=== PATIENT | male | born 1960 | race Caucasian/White ===

== ENCOUNTER 2021-10-11 12:47 | Outpatient (CLI) | payer SELFPAY ==
--- NOTE | 2021-10-11 13:05 | XR_ITS ---
WS: [id number] Cervical spine, 4 views, 10/11/2021 Clinical Data: NECK PAIN Comparison: None. Findings: No compression fractures are seen. There is disc space narrowing at C5-C6 and C6-C7 with ac companying anterior osteophytes. There is no prevertebral soft tissue swelling. The odontoid is unrem arkable. The soft tissues of the neck and the lung apices are normal. XR/XR cervical spine 3V* [id number] Impression: Degenerative disc narrowing at C5-C6 and C6-C7 with anterior osteophytes.
== END 2021-10-11 12:48 | disposition home or self-care (01) ==
PROVIDERS: PCP Family Medicine; Visit Provider Family Medicine
DX: M25.78 Osteophyte, vertebrae (principal)
CPT/HCPCS: 72040

== ENCOUNTER → 2021-11-01 09:52 | Outpatient (BNVA) | payer SELFPAY | PROVIDERS: PCP Family Medicine; Referring Provider Family Medicine; Visit Provider Physician Assistant | DX: M54.2 Cervicalgia (principal) | CPT/HCPCS: 72050 ==

== ENCOUNTER 2021-12-11 08:35 | Outpatient (CLI) | payer SELFPAY ==
--- NOTE | 2021-12-11 08:45 | MR_ITS ---
WS: [id number] MRI CERVICAL SPINE NONCONTRAST TECHNIQUE: Sagittal T1, T2 and STIR imaging. Axial T2, gradient, and fiesta imaging. CLINICAL INFORMATION: pain COMPARISON: CT 2015 FINDINGS: Straightening of the normal cervical lordosis. Mild spondylitic changes. Mild disc space narrowing wo rse at C5-C6 and C6-C7. Cord signal is normal. C2-C3: Normal. C3-C4: Disc osteophytic ridging. Mild LEFT and no RIGHT foraminal narrowing. Spinal canal is patent. Mild facet arthropathy. C4-C5: Disc osteophyte complex with endplate ridging. Mild LEFT foraminal narrowing. Mild facet arthr opathy. Spinal canal and RIGHT foramen are patent. C5-C6: Disc osteophyte complex with endplate ridging. Mild LEFT greater than RIGHT bony foraminal angel rowing. Moderate facet arthropathy. Spinal canal is patent. C6-C7: Disc osteophyte complex endplate ridging. Mild central canal stenosis. Moderate LEFT and mild RIGHT bony foraminal narrowing. C7-T1: Osteophytic ridging. Mild LEFT and no significant RIGHT foraminal narrowing. Spinal canal is p atent. Visualized brain stem structures: Normal. Prevertebral soft tissues: Normal. MR/MR cervical spin wo con* [id number] IMPRESSION: 1. Straightening of the normal cervical lordosis. Cord signal is normal. 2. Shallow central disc bulging C6-C7 with mild central canal stenosis. 3. Moderate LEFT C6-C7 bony foraminal narrowing. 4. Mild bony foraminal narrowing LEFT C4-C5 and bilateral C5-C6. 5. Mild to moderate facet arthropathy C4-C5 C5-C6.
== END 2021-12-11 08:36 | disposition home or self-care (01) ==
LOC: RAD 08:35
PROVIDERS: PCP Family Medicine; Visit Provider Physician Assistant
DX: M54.2 Cervicalgia (principal); M48.02 Spinal stenosis, cervical region; M47.812 Spondylosis without myelopathy or radiculopathy, cervical region
CPT/HCPCS: 72141

== ENCOUNTER 2025-01-18 13:25 | Outpatient (CLI) | payer MEDICARE, SELFPAY ==
--- NOTE | 2025-01-18 13:00 | CT_ITS ---
WS: [email or web address] CT ABDOMEN WITHOUT CONTRAST HISTORY: R10.9 - Unspecified abdominal pain Contiguous single phase 5 mm axial imaging performed through the abdomen. Oral contrast was not been provided. Coronal and sagittal reformats are submitted. All CT scans at [facility] use at least one of these dose optimization techniques: automated exposure control; mA and/or kV adjustment per patient size (includes targeted exams where dose is matched to clinical indication); or iterative reconstruction. IV CONTRAST: None Oral contrast: No DLP: 261.88 mGy.cm COMPARISON: None available. Lower thorax: Lung bases are clear. Heart is normal size. No hiatal hernia. Liver/biliary system: Normal size with no intrahepatic dilatation. Gallbladder: Normal. No gallstones or wall thickening. No pericholecystic fluid. Pancreas: Normal size pancreas and pancreatic duct. No adjacent inflammation. Spleen: Normal size spleen. No mass or infarct. Adrenal glands: Normal. Right kidney: Normal size kidney. 2.7 cm masses low-attenuation lower pole may be a cyst. This can be further evaluated by ultrasound. No obstruction of the kidney. Left kidney: Normal. Aorta: Normal. Lymphadenopathy: None. Free fluid: None. GI tract: As visualized through the abdomen. Abdominal wall: Unremarkable abdominal wall. No hernia. Visualized osseous structures: Unremarkable. CT/CT abdomen wo con [id number] IMPRESSION: 1. CT of the abdomen demonstrates no acute abnormalities. 2. No renal obstruction. 3. Indeterminant 2.7 cm mass lower pole RIGHT kidney. Recommend ultrasound marion luation. Cyst versus mass. 4. No ascites in the abdomen. 5. No abnormality at the lung bases.
== END 2025-01-18 13:26 | disposition home or self-care (01) ==
LOC: RAD 13:27
PROVIDERS: PCP Family Medicine; Visit Provider Family Medicine
DX: N28.89 Other specified disorders of kidney and ureter (principal); R10.9 Unspecified abdominal pain
CPT/HCPCS: 74150

== ENCOUNTER 2025-01-26 09:24 | Outpatient (CLI) | payer MEDICARE, SELFPAY ==
--- NOTE | 2025-01-26 09:30 | US_ITS ---
WS: [id number] RENAL ULTRASOUND HISTORY: painful right renal lower pole mass COMPARISON: CT 01/18/2025 TECHNIQUE: 2-D and color Doppler imaging of the kidney submitted. Right kidney: 9.7 cm x 6.0 cm x 6.0 cm. Cortex: 1.0 cm Normal size kidney. No obstruction. Cyst with through transmission lower pole RIGHT kidney measures 2.3 x 2.6 x 2.9 cm. No solid mass. Left kidney: 10.0 cm x 5.3 cm x 5.5 cm. Cortex: 1.1 cm Normal echogenicity with no hydronephrosis or mass. Aorta: Normal. Urinary Bladder: Normal distention. Mild prostate enlargement. US/US renal BI* [id number] IMPRESSION: 1. Simple cyst lower pole RIGHT kidney, 2.3 x 2.6 x 2.9 cm. 2. No renal obstruction or solid mass.
== END 2025-01-26 09:25 | disposition home or self-care (01) ==
LOC: RAD 09:27
PROVIDERS: PCP Family Medicine; Visit Provider Family Medicine
DX: N28.89 Other specified disorders of kidney and ureter (principal); N28.1 Cyst of kidney, acquired
CPT/HCPCS: 76770